=== PATIENT | male | born 1950 | race Caucasian/White ===

== ENCOUNTER 2022-04-14 13:18 | Emergency (ER) | payer MEDICARE, OTHER ==
[~2022-04-14] VITALS: Ht 180.3 cm; Wt 99.3 kg
[2022-04-14] MEDS ORDERED: LIDOCAINE HCL 1% 20 ML VIAL INJ SCH (15:30)
[2022-04-14 16:03] VITALS: BP 138/72
== END 2022-04-14 16:14 | disposition home or self-care (01) ==
LOC: EDH 13:18
DX: S61.011A Laceration without foreign body of right thumb without damage to nail, initial encounter (principal); I10 Essential (primary) hypertension; E78.00 Pure hypercholesterolemia, unspecified; X58.XXXA Exposure to other specified factors, initial encounter; Y93.89 Activity, other specified; Y92.89 Other specified places as the place of occurrence of the external cause; Y99.8 Other external cause status
CPT/HCPCS: 12002; 73140